=== PATIENT | female | born 1990 | race Caucasian/White ===

== ENCOUNTER 2016-12-06 12:38 | Emergency (ER) | payer MEDICAID ==
[~2016-12-06] VITALS: Ht 167.6 cm; Wt 106.6 kg
[~2016-12-06 12:38] MED LIST: ADVIL200 MG; BACTRIM DS 8001 TA1 PO; HYDROCODONE1 TABLET PO; MACROBID 100MG100 MG PO
--- NOTE | 2016-12-06 12:55 | Emergency Room Report ---
History of Present Illness Time Seen by MD Reeves Presenting Problem in Triage Pt arrived:Walked Presenting Problem:STATES SHE THINKS SHE HAS BRONCHITIS. 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 N Clinical Suspician of Infection? N Mental Status: 1 - Regular (Normal Baseline) Sepsis Risk:Low Sepsis Risk Have you (or family members/close friends) recently traveled outside the [place]? N If Yes, where/when: Have you had exposure to infectious disease within the past month? N TB? Other? Specify: Comment The patient has a 2 day history of productive cough, shortness of breath, wheezing in the morning, rhinorrhea, itchy ears, and upper anterior chest pain worsening with coughing. No fever. She says she has a history of bad croup as a child. She is a smoker. ALLERGIES Coded Allergies: No Known Allergies (12/06/16) History Medical History General CAD? No Angina: No [place]: No Hypertension? No Hyperlipidemia? No CHF? No DVT? No PE? No COPD? No Asthma? No Anemia? No GERD? No Gastric ulcers? No GI Bleed? No Hernia? No Thyroid Problems? Yes Hypothyroidism? Yes CVA? No Seizures? No Diabetes? No Renal Insuffiency? No End Stage Renal Disease? No UTI? No Stones? No BPH? No GB Disease: No Nephritic Syndrome? No Asplenia? No Hepatitis? No Sickle Cell Disease? No Arthritis? No Migraines? No Cataracts? No Glaucoma? No MRSA? No HIV? No TB? No Anxiety? No Depression? No Cancer? 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 Respiratory cough, shortness of breath, wheezing Physical Exam Vital Signs Vital Signs Date Time Temp Pulse Resp B/P Pulse O2 O2 Flow FiO2 Ox Delivery Rate 12/06 1411 98.7 87 20 155/100 98 08/27 1239 98.7 87 20 155/100 98 General Appearance no apparent distress Eye Exam - bilateral eye normal exam, bilateral eye PERRL, bilateral eye EOMI Ear, Nose, Throat hearing grossly normal, normal ENT inspection Neck normal inspection, non-tender, supple, full range of motion Respiratory Status Yes: trachea midline, chest symmetrical, productive cough. No: respiratory distress. Lung Sounds bilateral: rhonchi. Cardiovascular normal exam, regular rate/rhythm, no peripheral edema, no gallop, no JVD, no murmur, no rub, normal peripheral pulses Peripheral Pulses Pulses normal Yes Gastrointestinal normal bowel sounds, normal exam, non tender, soft, no organomegaly Extremities normal inspection Neurologic alert, oriented x 3 Mental status normal mood/affect Skin intact, normal color, warm/dry Medical Decision Making LABS/Meds/Orders Pt receiving controlled substance in ED? No Results/Orders Current Medication Orders Sig/Kee Start time Last Medication Dose Route Stop Time Status Admin Albuterol 0 .STK-MED ONE 12/06 1336 DC IH Miscellaneous 0 .STK-MED ONE 12/06 1336 DC XX Albuterol 2 PUFFS ONCE ONE 12/06 1300 DC 12/06 IH 12/06 1301 1345 Benzonatate 200 MG ONCE ONE 12/06 1300 DC PO 12/06 1301 Miscellaneous 1 UNIT ONCE ONE 12/06 1300 DC 12/06 XX 12/06 1301 1345 Orders Procedure Date/time Status RT REQUEST ALBUTEROL INHALER 12/06 1300 Active URINE 12/06 1253 Complete XRAY/CT/US XRAY/CT/US XRAY chest Comment Chest x-ray interpreted by Alex Hall M.D. No infiltrate, pneumothorax, pleural effusion, or wide mediastinum. Departure Departure Disposition [place] Home or Self Care(routine) Clinical Impression Primary Impression: Acute bronchitis Qualifiers: Bronchitis organism: unspecified organism Qualified Code: J20.9 - Acute bronchitis, unspecified Condition STABLE Patient Instructions DI for Acute Bronchitis Additional Instructions Using inhaler, 2 puffs 4 times a day for wheezing and shortness of breath. Tessalon for cough. Additional instructions for ACUTE BRONCHITIS: Antibiotics are not recommended for acute bronchitis. Use Tylenol or Ibuprofen for pain or fever. Rest and plenty of fluids. Return immediately if you have an uncontrollable fever greater than 102 degrees, severe headache or neck stiffness, difficulty breathing or shortness of breath, persistent vomiting, severe sore throat or inability to swallow. See your physician if not improving in 4-5 days. Prescriptions Current Visit Scripts Benzonatate (Tessalon Perle) 100 MG PO TID #15 SGL ED Critical Care Critical Care No at 0167
[2016-12-06] MEDS ORDERED: TESSALON PERLE100 M1 PO (13:33)
[2016-12-06 14:11] VITALS: BP 155/100
--- NOTE | 2016-12-06 14:31 | RADIOLOGY REPORT PS360 ---
CHEST(2 VIEWS-NOT PORTABLE) HISTORY: cough ORDERING PHYSICIAN: Alex Hall MD PATIENT AGE: 25 years COMPARISON: None available FINDINGS: The cardiomediastinal silhouette and pulmonary vascularity are within normal limits. The lungs are clear without infiltrates, suspicious nodules, or pleural effusions. No acute bony abnormalities. IMPRESSION: Negative chest, no acute finding
== END 2016-12-06 14:12 | disposition home or self-care (01) ==
LOC: ER 12:38
DX: J20.9 Acute bronchitis, unspecified (principal); Z72.0 Tobacco use

== ENCOUNTER 2017-02-25 06:58 | Emergency (ER) | payer MEDICAID ==
[~2017-02-25] VITALS: Ht 167.6 cm; Wt 111.1 kg
[~2017-02-25 06:58] MED LIST changes: +TESSALON PERLE100 M1 PO
--- NOTE | 2017-02-25 07:27 | Emergency Room Report ---
History of Present Illness Time Seen by MD Saldaña Presenting Problem in Triage Pt arrived:Walked Presenting Problem:PT C/O SORE/SWOLLEN THROAT, SAYS SHE CAN BARELY TALK OR SWALLOW. 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 N Clinical Suspician of Infection? N Mental Status: 1 - Regular (Normal Baseline) Sepsis Risk:Low Sepsis Risk Have you (or family members/close friends) recently traveled outside the [place]? N If Yes, where/when: Have you had exposure to infectious disease within the past month? N TB? Other? 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 No Angina: No [place]: No Hypertension? No Hyperlipidemia? No CHF? No DVT? No PE? No COPD? No Asthma? No Anemia? No GERD? No Gastric ulcers? No GI Bleed? No Hernia? No Thyroid Problems? Yes Hypothyroidism? Yes CVA? No Seizures? No Diabetes? No Renal Insuffiency? No End Stage Renal Disease? No UTI? No Stones? No BPH? No GB Disease: No Nephritic Syndrome? No Asplenia? No Hepatitis? No Sickle Cell Disease? No Arthritis? No Migraines? No Cataracts? No Glaucoma? No MRSA? No HIV? No TB? No Anxiety? No Depression? No Cancer? No More? 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 Respiratory denies cough, denies shortness of breath, denies wheezing Cardiovascular denies chest pain, denies palpitations, denies syncope Gastrointestinal denies abdominal pain, denies diarrhea, denies vomiting Genitourinary denies: frequency, hesitancy, hematuria. Musculoskeletal denies back pain, denies joint pain, denies joint swelling, denies neck pain Skin denies rash Psychiatric/Neurological denies seizure Physical Exam Vital Signs Vital Signs Date Time Temp Pulse Resp B/P Pulse O2 O2 Flow FiO2 Ox Delivery Rate 02/25 702 98.2 77 20 128/59 99 - WBC >12,000 or <4,000 or 10% bands? 2 or more SIRS Criteria Met? B/P:128/59 MAP:82 Creatinine >2.0? UA output<0.5ml/kg/hr for 2 hrs? Platelet count >100,000? Lactate >2.0mmol/1? INR >1.2 or PTT > than 60 sec? Evidence of Organ Dysfunction? Provider documented clinical suspician of infection? N Sepsis Criteria Count: 0 Sepsis Risk: Low Sepsis Risk General Appearance no apparent distress Eye Exam - bilateral eye PERRL, bilateral eye EOMI Ear, Nose, Throat pharyngeal erythema Neck supple Respiratory Status No: respiratory distress. Lung Sounds bilateral: lungs clear. 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 No Results/Orders Orders Procedure Date/time Status STREP SCREEN THROAT 02/25 713 Complete CULTURE, THROAT 02/25 711 Active Departure Departure Time of Disposition 0728 Disposition [place] Home or Self Care(routine) Clinical Impression Primary Impression: Pharyngitis Qualifiers: Pharyngitis/tonsillitis etiology: unspecified etiology Qualified Code: J02.9 - Acute pharyngitis, unspecified Condition STABLE Referrals FOX LYON (Family) Patient Instructions DI for Pharyngitis/Tonsillopharyngitis -- Adult Additional Instructions gargle and use meds and see pcp for follow up Discharge Counseling Counseled pt/family regarding diagnosis, test results, medications/RX, follow up needs Prescriptions Current Visit Scripts Azithromycin (Zithromycin (Z-SILKE) 250MG Tab) 250 MG PO DAILY #6 TAB TAKE TWO (2) TABLETS ON DAY 1, THEN ONE (1) TABLET DAY #2 THRU #5 Prednisone (Prednisone 20MG) 20 MG PO BID #10 TAB ED Critical Care Critical Care No at 0710
--- NOTE | 2017-02-25 07:27 | Emergency Room Report ---
History of Present Illness Time Seen by MD Saldaña Presenting Problem in Triage Pt arrived:Walked Presenting Problem:PT C/O SORE/SWOLLEN THROAT, SAYS SHE CAN BARELY TALK OR SWALLOW. 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 N Clinical Suspician of Infection? N Mental Status: 1 - Regular (Normal Baseline) Sepsis Risk:Low Sepsis Risk Have you (or family members/close friends) recently traveled outside the [place]? N If Yes, where/when: Have you had exposure to infectious disease within the past month? N TB? Other? 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 No Angina: No [place]: No Hypertension? No Hyperlipidemia? No CHF? No DVT? No PE? No COPD? No Asthma? No Anemia? No GERD? No Gastric ulcers? No GI Bleed? No Hernia? No Thyroid Problems? Yes Hypothyroidism? Yes CVA? No Seizures? No Diabetes? No Renal Insuffiency? No End Stage Renal Disease? No UTI? No Stones? No BPH? No GB Disease: No Nephritic Syndrome? No Asplenia? No Hepatitis? No Sickle Cell Disease? No Arthritis? No Migraines? No Cataracts? No Glaucoma? No MRSA? No HIV? No TB? No Anxiety? No Depression? No Cancer? No More? 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 Respiratory denies cough, denies shortness of breath, denies wheezing Cardiovascular denies chest pain, denies palpitations, denies syncope Gastrointestinal denies abdominal pain, denies diarrhea, denies vomiting Genitourinary denies: frequency, hesitancy, hematuria. Musculoskeletal denies back pain, denies joint pain, denies joint swelling, denies neck pain Skin denies rash Psychiatric/Neurological denies seizure Physical Exam Vital Signs Vital Signs Date Time Temp Pulse Resp B/P Pulse O2 O2 Flow FiO2 Ox Delivery Rate 02/25 702 98.2 77 20 128/59 99 - WBC >12,000 or <4,000 or 10% bands? 2 or more SIRS Criteria Met? B/P:128/59 MAP:82 Creatinine >2.0? UA output<0.5ml/kg/hr for 2 hrs? Platelet count >100,000? Lactate >2.0mmol/1? INR >1.2 or PTT > than 60 sec? Evidence of Organ Dysfunction? Provider documented clinical suspician of infection? N Sepsis Criteria Count: 0 Sepsis Risk: Low Sepsis Risk General Appearance no apparent distress Eye Exam - bilateral eye PERRL, bilateral eye EOMI Ear, Nose, Throat pharyngeal erythema Neck supple Respiratory Status No: respiratory distress. Lung Sounds bilateral: lungs clear. 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 No Results/Orders Orders Procedure Date/time Status STREP SCREEN THROAT 02/25 713 Complete CULTURE, THROAT 02/25 711 Active Departure Departure Time of Disposition 0728 Disposition [place] Home or Self Care(routine) Clinical Impression Primary Impression: Pharyngitis Qualifiers: Pharyngitis/tonsillitis etiology: unspecified etiology Qualified Code: J02.9 - Acute pharyngitis, unspecified Condition STABLE Referrals FOX LYON (Family) Patient Instructions DI for Pharyngitis/Tonsillopharyngitis -- Adult Additional Instructions gargle and use meds and see pcp for follow up Discharge Counseling Counseled pt/family regarding diagnosis, test results, medications/RX, follow up needs Prescriptions Current Visit Scripts Azithromycin (Zithromycin (Z-SILKE) 250MG Tab) 250 MG PO DAILY #6 TAB TAKE TWO (2) TABLETS ON DAY 1, THEN ONE (1) TABLET DAY #2 THRU #5 Prednisone (Prednisone 20MG) 20 MG PO BID #10 TAB ED Critical Care Critical Care No at 0770
--- OUTSIDE RECORDS SUMMARY | 2017-02-25 07:31 | External Medical Summary Rpt | CCD ---
Author Author [employer] Organization [employer] Address Unknown Phone Unavailable Purpose Continuity of Care Document - through 2016
--- OUTSIDE RECORDS SUMMARY | 2017-02-25 07:31 | External Medical Summary Rpt | CCD ---
Author Author , LUIS A MICHAEL Address Unknown Phone [email or web address] Purpose Continuity of Care Document - 09-23-2016 through 2016 Problems Code Diagnosis DOS Provider Status E07.9 DISORDER OF 09-23-2016 THYROID, UNSPECIFIED F17.210 NICOTINE 09-23-2016 DEPENDENCE, CIGARETTES, UNCOMPLICAT ED L29.2 PRURITUS 09-23-2016 VULVAE N39.0 URINARY 09-23-2016 TRACT INFECTION, SITE NOT SPECIFIED N76.0 ACUTE 09-23-2016 VAGINITIS Z79.899 OTHER LONG 09-23-2016 TERM (CURRENT) DRUG THERAPY J20.9 ACUTE BRONCHITIS, UNSPECIFIED Results Labs Lab Lab Date Result Refere Interp Status Commen Order Detail nces retati t Range on Screening group A Streptococcus antigen (02-25-2017 07:11) Screeni NEGATIV complet ng 017 E ed group A 07:11 NEGATIV E L Strepto coccus antigen
--- OUTSIDE RECORDS SUMMARY | 2017-02-25 07:31 | External Medical Summary Rpt | CCD ---
Author Author , LUIS A MICHAEL Address Unknown Phone [email or web address] Purpose Continuity of Care Document - 09-23-2016 [...]
--- OUTSIDE RECORDS SUMMARY | 2017-02-25 07:32 | External Medical Summary Rpt | CCD ---
Demographics Preferred Language Iraqi Marital Status Unknown Congregation Affiliation Unknown Race Unknown Ethnic Group Unknown Author Author , ALEC MICHAEL Address Unknown Phone Immunization No patient found.
--- OUTSIDE RECORDS SUMMARY | 2017-02-25 07:32 | External Medical Summary Rpt | CCD ---
Demographics Preferred Language Tristanian Marital Status Unknown Yazdanism Affiliation Unknown Race Unknown Ethnic Group Unknown Author Author , ALEC MICHAEL Address Unknown Phone Immunization No patient found.
[2017-02-25] MEDS ORDERED: PREDNISONE 20MG20 MG PO (07:33)
[2017-02-25] MEDS ORDERED: ZITHROMAX Z PA250 MG PO (07:33)
[2017-02-25 07:40] VITALS: BP 143/91
== END 2017-02-25 07:41 | disposition home or self-care (01) ==
LOC: ER 06:58
DX: J02.9 Acute pharyngitis, unspecified (principal); F17.210 Nicotine dependence, cigarettes, uncomplicated

== ENCOUNTER → 2017-03-02 | Outpatient (CLI) | payer MEDICAID ==
[~2017-03-02] MED LIST changes: +PREDNISONE 20MG20 MG PO; +ZITHROMAX Z PA250 MG PO
== END ==
LOC: LAB 13:33
DX: E03.9 Hypothyroidism, unspecified (principal)